=== PATIENT | female | born 1990 | race Hispanic/Latino ===

== ENCOUNTER 2019-02-25 18:25 | Emergency (ER) | payer BC, OTHER ==
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
[2019-02-25 19:04] LABS: HCG Qualitative,Urine Negative (Negative)
[2019-02-25] MEDS ORDERED: IBUPROFEN PO ONE (20:21)
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
--- NOTE | 2019-02-25 20:33 | XRay Report ---
PROCEDURE: XR WRIST 2V RT TECHNIQUE: Right wrist 2 views HISTORY: wrist pain. COMPARISONS: FINDINGS: There is acute traumatic fracture at the base of the first metacarpal with minimal displacement. The articular surface appears intact. Carpal bones maintain normal alignment. Distal radius and ulna are intact. IMPRESSION: Acute fracture base of the first metacarpal. This document is electronically signed by Sigifredo Magana MD., February 25 2019 08:31:58 PM ET
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
[2019-02-25] MEDS ORDERED: ULTRAM PO ONE (21:29)
[2019-02-25] MEDS ORDERED: ULTRAM ONE (21:33)
[2019-02-25 21:37] VITALS: BP 107/71
== END 2019-02-25 21:39 | disposition home or self-care (01) ==
LOC: ED 18:25
DX: S62.501A Fracture of unspecified phalanx of right thumb, initial encounter for closed fracture (principal); Z87.891 Personal history of nicotine dependence; Z79.899 Other long term (current) drug therapy; V47.5XXA Car driver injured in collision with fixed or stationary object in traffic accident, initial encounter; Y93.89 Activity, other specified; Y92.488 Other paved roadways as the place of occurrence of the external cause; Y99.8 Other external cause status
CPT/HCPCS: 81025; 99284